=== PATIENT | male | born 1940 | race Two or more races ===

== ENCOUNTER 2016-09-30 17:48 | Emergency (ER) | payer SELFPAY ==
[~2016-09-30] VITALS: Ht 167.6 cm; Wt 94.5 kg
[2016-09-30 17:54] VITALS: BP 163/94
== END 2016-09-30 19:57 | disposition home or self-care (01) ==
LOC: ED 19:51
DX: S76.111A Strain of right quadriceps muscle, fascia and tendon, initial encounter (principal); E78.5 Hyperlipidemia, unspecified; E78.00 Pure hypercholesterolemia, unspecified; W50.2XXA Accidental twist by another person, initial encounter; Y93.89 Activity, other specified; Y92.410 Unspecified street and highway as the place of occurrence of the external cause; Y99.8 Other external cause status
CPT/HCPCS: 29505